=== PATIENT | male | born 1970 | race Caucasian/White ===

== ENCOUNTER → 2017-12-16 10:38 | Outpatient (CLI) | payer OTHER, SELFPAY ==
--- NOTE | 2017-12-16 10:42 | DI.RAD.S_ITS ---
PROCEDURE: XR SHOULDER RT MIN 2V INDICATIONS: shoulder pain TECHNIQUE: 3 views of the shoulder were acquired. COMPARISON: None. FINDINGS: Bones: No fractures or dislocations. No suspicious bony lesions. Visualized ribs appear intact. Soft tissues: No suspicious soft tissue calcifications. IMPRESSION: Mild a.c. joint osteoarthritic change, no acute trauma found. Dictated by: Saw Morgan M.D. on 12/16/2017 at 11:03 Approved by: Saw Morgan M.D. on 12/16/2017 at 11:03
== END ==
PROVIDERS: Family Provider Family Medicine; PCP Family Medicine; Visit Provider Internal Medicine
DX: M19.011 Primary osteoarthritis, right shoulder (principal); M25.511 Pain in right shoulder
CPT/HCPCS: 73030

== ENCOUNTER → 2018-04-09 14:46 | Outpatient (CLI) | payer OTHER, SELFPAY ==
--- NOTE | 2018-04-09 14:50 | DI.MRI.S_ITS ---
PROCEDURE: MR SHOULDER RT WO CON INDICATIONS: Pain and immobility TECHNIQUE: Noncontrast oblique coronal T2 fast spin echo with fat saturation, oblique sagittal T1 spin echo and T2 fast spin echo with fat saturation, axial T1 spin echo and T2 fast spin echo with fat saturation through the shoulder. COMPARISON: None. FINDINGS: Image quality: Excellent. Rotator cuff: There is tendinosis and low-grade articular and bursal surface partial-thickness tear involving distal supraspinatus at its insertion the humeral head extending to musculotendinous junction. Distal infraspinatus tendinosis is seen at its insertion on humeral head. Tendinosis and low-grade intrasubstance partial-thickness tear involving distal subscapularis is seen. No full-thickness rotator cuff tendon rupture. Sagittal images demonstrate no significant rotator cuff muscle atrophy. Bones and bursae: No bone marrow contusions or fractures. There is moderate acromioclavicular joint osteoarthritis and mild to moderate glenohumeral joint osteophytosis. The acromion demonstrates conventional anatomy, without an os acromiale. Small amount of glenohumeral joint effusion and subacromial subdeltoid bursal fluid is seen. No gross loose body. Capsule and soft tissues: There is signal abnormality and contour irregularity involving superior anterior labrum at 12 to 2:00 position suggestive of superior anterior labral tear. In the absence of intra-articular contrast, the glenohumeral ligaments appear intact. The long head of the biceps tendon demonstrates normal location and morphology. The rotator interval appears normal, without fibrosis. The coracohumeral ligament is normal in thickness. IMPRESSION: 1. Moderate acromioclavicular joint osteoarthritis and mild glenohumeral joint osteophytes. 2. Tendinosis and low-grade articular and bursal surface partial-thickness tear involving distal supraspinatus at its insertion on humeral head extending to musculotendinous junction. 3. Tendinosis and low-grade intrasubstance partial thickness involving distal subscapularis. Distal infraspinatus tendinosis. No full-thickness rotator cuff tendon rupture. 4. Suggestion of superior anterior labral tear at 12 to 2:00 position. Dictated by: Cornelio Keller M.D. on 04/09/2018 at 15:55 Approved by: Cornelio Keller M.D. on 04/09/2018 at 16:47
== END ==
PROVIDERS: PCP Family Medicine; Visit Provider Family Medicine
DX: M25.511 Pain in right shoulder (principal); M19.011 Primary osteoarthritis, right shoulder
CPT/HCPCS: 73221

== ENCOUNTER → 2019-07-14 14:01 | Outpatient (CLI) | payer OTHER, SELFPAY ==
--- NOTE | 2019-07-14 14:02 | DI.RAD.S_ITS ---
PROCEDURE: XR CHEST 2V INDICATIONS: Cough TECHNIQUE: 2 views of the chest were acquired. COMPARISON: [facility], , CHEST 2VW, 08/25/2010, 18:38. FINDINGS: Surgical changes and devices: None. Lungs and pleura: Lungs are clear. No pleural effusions or pneumothorax. Mediastinum: Mediastinal contours are normal. Heart size is normal. Bones and chest wall: No suspicious bony abnormalities. Soft tissues appear unremarkable. IMPRESSION: No acute cardiopulmonary disease. Dictated by: Hawk Moeller M.D. on 07/14/2019 at 14:18 Approved by: Hawk Moeller M.D. on 07/14/2019 at 14:19
== END ==
PROVIDERS: PCP Family Medicine; Visit Provider Registered Nurse
DX: R05 Cough (principal)
CPT/HCPCS: 71046